=== PATIENT | male | born 1985 | race Caucasian/White ===

== ENCOUNTER 2022-01-20 13:25 | Emergency (ER) | payer BC, SELFPAY ==
[2022-01-20 13:38] VITALS: BP 130/87; PULSE 81; RESP 16; TEMP 36.9; O2SAT 98
--- NOTE | 2022-01-20 14:31 | ED.URI ---
HPI - URI/Sore Throat General Chief Complaint: Upper Respiratory Infection Stated Complaint: HEADACHE/EYE REDNESS/PAIN/FEVER Time Seen by Provider: 01/20/22 14:31 Source: patient, RN notes reviewed and old records reviewed Mode of arrival: ambulatory Limitations: no limitations History of Present Illness HPI Narrative: 36-year-old male [facility] of continued fever night sweats and red eyes. Reports diagnosed with strep throat earlier this week and received amoxicillin. Is continuing to take amoxicillin reports, decreased swollen lymph nodes. Continued to have fever of 99-101 and headache was seen by provider earlier this week. Tested negative for influenza a and B and strep. Continues to have fever, feels fatigued, frequent headache worse with standing and feels dizzy with standing. Reports eyes have been red for several days. Denies discharge from eyes. Denies blurry vision or floaters. Denies eye pain or discomfort. Denies sinus congestion or drainage. Denies sore throat or earache. Reports throat never felt sore when diagnosed with strep. But swollen lymph nodes. Has been taking Tylenol and ibuprofen, 2 tabs of each every 2 hours. [place] better yesterday and was able to go to work. In the area for [employer] and started to feel more fatigued with fever. Has stayed in hotel room all day, due to concern about being contagious. Denies coughing shortness of breath or difficulty breathing. Somewhat decreased appetite but able to eat. Denies nausea vomiting or diarrhea. Does report seasonal allergies. Patient is most concerned about continued fever feeling fatigued and eye redness. Denies neck pain or discomfort. Denies rash. MD elicited complaint: cough, sore throat, rhinorrhea and nasal congestion Related Data Home Medications Medication Instructions Recorded Confirmed amoxicillin 01/20/22 omeprazole 01/20/22 Allergies Allergy/AdvReac Type Severity Reaction Status Date / Time No Known Allergies Allergy Verified 01/20/22 13:42 Review of Systems Review of Systems: CONSTITUTIONAL: Reports fever of 99-100 and sweating. Feels fatigued. EYES: Denies visual changes, or discharge. Eye redness ENT: Denies rhinorrhea, congestion, sinus pain, otalgia and sore throat. CARDIOVASCULAR: Denies chest pain, palpitations, or edema. RESPIRATORY: Denies cough or shortness of breath.. Denies dyspnea. GASTROINTESTINAL: Denies abdominal pain, nausea, vomiting, diarrhea SKIN: Denies rash or itching. MUSCULOSKELETAL: Denies myalgia. NEUROLOGIC: Reports headache upon standing. Reports dizziness upon standing. All systems reviewed & are unremarkable except as noted in HPI and below PMFSH Comments At time of signature, agree with nursing past medical, surgical, social and family history. There is no relevant family history pertinent to the presenting complaint Exam Narrative: GENERAL: present in exam room. Well-appearing, well-nourished, and in no acute distress. Pleasant and cooperative. HEAD: Normocephalic EYES: PERRLA, conjunctivae clear ENT: Nares clear, turbinates edematous and erythematous, clear discharge. Mucous membranes moist. TM pearly driver with dull light reflex bilaterally; no tragal tenderness. Oropharynx erythematous without lesions. Tonsils enlarged and without exudate, no drooling, no hoarseness, no trismus, uvula midline. NECK: Supple. Full range of motion. No occipital, tonsillar, or anterior cervical lymphadenopathy or tenderness with palpation. CHEST: Clear to auscultation anterior and posterior. Breath sounds equal bilateral. Good air movement no wheezing, rhonchi, rales, or stridor. No respiratory distress, speaks in full sentences. HEART: Regular rate and rhythm. No murmur heard. SKIN: [place] warm, dry, no rash. NEURO: Alert and oriented x3. PSYCH: Euthymic mood and affect HENMT: Head: atraumatic Ears: external ears normal, TM's normal bilate
== END 2022-01-20 15:08 | disposition home or self-care (01) ==
PROVIDERS: Emergency Provider Nurse Practitioner Family
DX: B34.9 Viral infection, unspecified (principal); H10.33 Unspecified acute conjunctivitis, bilateral
CPT/HCPCS: 99213; G0463